=== PATIENT | male | born 1995 | race Caucasian/White ===

== ENCOUNTER → 2017-11-21 | Outpatient (CLI) | payer OTHER ==
--- NOTE | 2017-11-21 14:26 | XR ---
2 view abdomen HISTORY: Low back pain, hematuria 2 views the abdomen correlated to CT abdomen pelvis same date Bone mineralization is maintained. Spina bifida occulta is noted at S1. No bowel obstruction or pneum operitoneum. Lung bases are not included on the exam. IMPRESSION: Nonspecific bowel gas pattern.
== END | disposition home or self-care (01) ==
LOC: RADXRYALE 11:04
PROVIDERS: ATTEND Physician Assistant Medical
DX: R31.0 Gross hematuria (principal); M54.5 Low back pain
CPT/HCPCS: 74019

== ENCOUNTER → 2017-11-21 | Outpatient (CLI) | payer OTHER ==
--- NOTE | 2017-11-21 13:20 | CT ---
EXAMINATION TYPE: CT abdomen pelvis wo con DATE OF EXAM: 11/21/2017 COMPARISON: NONE HISTORY: 22-year-old male Low back pain and gross hematuria. CT DLP: 781.30 mGycm. Automated exposure control for dose reduction was used. TECHNIQUE: Contiguous axial scanning of the abdomen and pelvis without IV contrast. Coronal and sagit bibi reconstructions performed. FINDINGS: Heart is normal size without pericardial effusion. Lung bases clear without pleural effusion. Noncontrast appearance of the liver, gallbladder, adrenal glands, spleen, and pancreas within normal limits. No nephrolithiasis or hydronephrosis. No suspicious calcification seen along the course of either ure ter. No contour deforming renal lesion seen on either side. No dilated small bowel, free fluid, or free air. Scattered nonenlarged and borderline prominent mesenteric lymph nodes measuring up to 6 mm. Likely re active/post inflammatory. No retroperitoneal lymphadenopathy. Normal appendix. No significant stool burden. No pericolonic inflammatory change. Bladder urine distended. No abnormal fluid collection in the pelvis or pelvic lymphadenopathy. Bones: No osseous destructive process. IMPRESSION: No nephrolithiasis or hydronephrosis. No suspicious ureteral stone. Scattered nonenlarged and borderline sized mesenteric lymph nodes likely reactive/post inflammatory.
== END | disposition home or self-care (01) ==
LOC: RADCTMAIN 12:30
PROVIDERS: ATTEND Physician Assistant Medical
DX: R31.0 Gross hematuria (principal); M54.5 Low back pain
CPT/HCPCS: 74176

== ENCOUNTER → 2018-05-22 | Outpatient (CLI) | payer OTHER ==
--- NOTE | 2018-05-22 14:12 | XR ---
EXAMINATION TYPE: XR abdomen 2V DATE OF EXAM: 05/22/2018 COMPARISON: 11/21/2017 HISTORY: Right lower abdominal pain TECHNIQUE: One view abdominal series FINDINGS: The osseous structures are intact. The bowel gas pattern is nonspecific. Retained fecal debris throu ghout the colon. Spina bifida occulta lumbosacral junction. IMPRESSION: 1. Nonspecific abdomen.
== END | disposition home or self-care (01) ==
LOC: RADXRYALE 13:52
PROVIDERS: ATTEND Physician Assistant Medical
DX: R10.30 Lower abdominal pain, unspecified (principal)
CPT/HCPCS: 74019

== ENCOUNTER → 2021-02-27 | Outpatient (CLI) | payer BC ==
--- NOTE | 2021-02-28 11:00 | ECHOF ---
Referral Reason:R00.2 Palpitations, R42 MEASUREMENTS -------- HEIGHT: 182.9 cm WEIGHT: 106.6 kg BP: IVSd: 1.1 cm (0.6 - 1.1) LVIDd: 4.3 cm (3.9 - 5.3) LVPWd: 1.0 cm (0.6 - 1.1) IVSs: 1.4 cm LVIDs: 3.0 cm LVPWs: 1.5 cm LAESV Index (A-L): 20.42 ml/m Ao Diam: 3.1 cm (2.0 - 3.7) AV Cusp: 2.3 cm (1.5 - 2.6) MV EXCURSION: 18.872 mm (> 18.000) MV EF SLOPE: 67 mm/s (70 - 150) EPSS: 0.5 cm MV E Kelton: 0.82 m/s MV DecT: 220 ms MV A Kelton: 0.64 m/s MV E/A Ratio: 1.29 RAP: 5.00 mmHg RVSP: 15.43 mmHg FINDINGS -------- Sinus rhythm. This was a technically good study. LV size, wall thickness and systolic function are normal, with an EF greater than 55%. The left wyatt tricular size is normal. The right ventricle is normal in size. Normal LA size by volume 22+/-6 ml/m2. The right atrial size is normal. The aortic valve is trileaflet, and appears structurally normal. No aortic stenosis or regurgitation. Mild mitral regurgitation is present. Mild tricuspid regurgitation present. Right ventricular systolic pressure is normal at < 35 mmHg. There is no pulmonic regurgitation present. The aortic root size is normal. There is no pericardial effusion. CONCLUSIONS -------- 1. LV size, wall thickness and systolic function are normal, with an EF greater than 55%. 2. The left ventricular size is normal. 3. The right ventricle is normal in size. 4. Normal LA size by volume 22+/-6 ml/m2. 5. The right atrial size is normal. 6. Mild mitral regurgitation is present. 7. Mild tricuspid regurgitation present. 8. The aortic root size is normal. 9. There is no pericardial effusion. [employer] MERCHANDISER: Jeannine Humphrey RDCS
== END | disposition home or self-care (01) ==
LOC: RADECHMAIN 13:54
PROVIDERS: ATTEND Family Medicine
DX: I08.1 Rheumatic disorders of both mitral and tricuspid valves (principal)
CPT/HCPCS: 93306